=== PATIENT | male | born 1970 | race Caucasian/White ===

== ENCOUNTER 2023-11-16 23:07 | Inpatient (IN) | payer OTHER, SELFPAY ==
[2023-11-16 20:35] VITALS: BP 181/92
[2023-11-16 20:57] LABS: % Basophils 0.3 % (0-2); % Eosinophils 0.9 % (0-6); % Immature Granulocytes 0.1 % (0-0.5); % Lymphocytes 27.7 % (20.5-51.1); % Monocytes 8.6 % (1.7-9.3); % Neutrophils 62.4 % (42.2-75.2); Absolute Eosinophils 0.1 10^3/uL (0-0.7); Absolute Lymphocytes 1.9 10^3/uL (1.2-3.4); Absolute Monocytes 0.6 10^3/uL (0.1-0.6); Absolute Neutrophils 4.2 10^3/uL (1.4-6.5); Hematocrit 40.5 % (39.0-52.0); Hemoglobin 14.5 g/dL (13.0-18.0); Mean Corp Hgb Conc. 35.8 g/dL (33.0-37.0); Mean Corpuscular Hgb 31.6 pg (27.0-31.0); Mean Corpuscular Volume 88.2 fL (80.0-94.0); Mean Platelet Volume 9.9 fL (7.4-10.4); Nucleated Red Blood Cells % 0 % (-); Platelet Count 224 10^3/uL (130-400); Red Blood Cell Count 4.59 10^6/uL (4.70-6.10); Red Cell Dist. Width 12.6 % (11.5-14.5); White Blood Cell Count 6.7 10^3/uL (4.8-10.8)
[2023-11-16 21:11] LABS: ALT (SGPT) 22 U/L (0-50); AST (SGOT) 33 U/L (17-59); Albumin 4.3 g/dl (3.5-5.0); Alkaline Phosphatase 80 U/L (38-126); Blood Urea Nitrogen 22 mg/dl (9-20); Calcium 9.3 mg/dl (8.4-10.2); Carbon Dioxide 24 mmol/L (22-30); Chloride 104 mmol/L (98-107); Glucose 105 mg/dl (70-99); Potassium 4.3 mmol/L (3.5-5.1); Sodium 136 mmol/L (135-145); Total Bilirubin 0.6 mg/dl (0.2-1.3); Total Protein 7.2 g/dl (6.3-8.2); eGFR > 60.00
[2023-11-16 21:21] LABS: Troponin I 0.434 ng/ml
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
[2023-11-16 21:48] VITALS: BP 157/89
[2023-11-16] MEDS: LOW STRENGTH ASPIRIN 324 MG PO (21:48)
[2023-11-16] MEDS: NITROSTAT (SUBLINGUAL) 0.400000000000000022 MG SL (21:49)
[2023-11-16 21:53] VITALS: BMI 32.5
[2023-11-16 22:00] VITALS: BP 139/92
[2023-11-16 22:06] LABS: APTT 28.8 Sec (23.4-35.0)
[2023-11-16] MEDS: HEPARIN 4000 UNITS IV (22:13)
[2023-11-16] MEDS: LOPRESSOR 25 MG PO (22:13)
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
[2023-11-16] MEDS: HEPARIN 25000 UNITS/250 ML IV (22:47)
[2023-11-16 23:02] VITALS: BP 154/86
[2023-11-16 23:30] VITALS: BP 154/86
[2023-11-16 23:41] VITALS: BMI 33.0
[2023-11-16 23:49] VITALS: BP 140/95
[2023-11-17] VITALS (27 sets, daily range): BP systolic 124–174; BP diastolic 70–110
[2023-11-17 00:46] LABS: HDL Cholesterol 40 mg/dl; LDL Cholesterol, Calculated 22 mg/dl; Total Cholesterol 119 mg/dl (50-199); Triglyceride 285 mg/dl (10-149); Very Low Density Lipoprotein 57 mg/dl (0-30)
--- NOTE | 2023-11-17 00:50 | PTCARENOTE ---
Received patient from ED via stretcher into room 4850. Patient ambulated self to bed and denies any dizziness. Tele monitor applied, patient SR. Denies any pain or discomfort. IV heparin gtt currently infusing at 10ml/hr. Oriented patient to room.
Patient aware of POC, call alston within reach.
[2023-11-17 00:53] LABS: Troponin I 0.435 ng/ml
[2023-11-17 05:30] LABS: % Basophils 0.5 % (0-2); % Eosinophils 1.4 % (0-6); % Lymphocytes 36.8 % (20.5-51.1); % Monocytes 8.2 % (1.7-9.3); % Neutrophils 52.1 % (42.2-75.2); Absolute Eosinophils 0.1 10^3/uL (0-0.7); Absolute Immature Granulocytes 0.1 10^3/uL (0-0.05); Absolute Lymphocytes 2.2 10^3/uL (1.2-3.4); Absolute Monocytes 0.5 10^3/uL (0.1-0.6); Hematocrit 41.5 % (39.0-52.0); Hemoglobin 14.6 g/dL (13.0-18.0); Mean Corp Hgb Conc. 35.2 g/dL (33.0-37.0); Mean Corpuscular Hgb 31.3 pg (27.0-31.0); Mean Corpuscular Volume 89.1 fL (80.0-94.0); Nucleated Red Blood Cells % 0 % (-); Platelet Count 180 10^3/uL (130-400); Red Blood Cell Count 4.66 10^6/uL (4.70-6.10); Red Cell Dist. Width 12.7 % (11.5-14.5); White Blood Cell Count 5.8 10^3/uL (4.8-10.8)
[2023-11-17 05:39] LABS: APTT 42.7 Sec (23.4-35.0)
[2023-11-17] MEDS: OCEAN, SALINE MIST 1 SPRAYS NASAL (05:50)
[2023-11-17 06:01] LABS: ALT (SGPT) 21 U/L (0-50); AST (SGOT) 31 U/L (17-59); Albumin 4.1 g/dl (3.5-5.0); Alkaline Phosphatase 69 U/L (38-126); Blood Urea Nitrogen 16 mg/dl (9-20); Calcium 9.2 mg/dl (8.4-10.2); Carbon Dioxide 25 mmol/L (22-30); Chloride 106 mmol/L (98-107); Estimated Creatinine Clearance > 125 ml/min; Glucose 99 mg/dl (70-99); Potassium 4.3 mmol/L (3.5-5.1); Sodium 137 mmol/L (135-145); Total Bilirubin 0.7 mg/dl (0.2-1.3); Total Protein 6.8 g/dl (6.3-8.2); eGFR > 60.00
[2023-11-17 06:14] LABS: Troponin I 0.452 ng/ml
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
[2023-11-17] MEDS: LOW STRENGTH ASPIRIN 81 MG PO (09:04)
[2023-11-17 09:09] LABS: Glycohemoglobin (HgbA1c) 5.7 % (4.0-5.6)
[2023-11-17] MEDS: CLARITIN 10 MG PO (09:12)
[2023-11-17] MEDS: TYLENOL 650 MG PO ×2 (09:23→20:47)
--- NOTE | 2023-11-17 09:24 | PTCARENOTE ---
Patient resting in bed, IV heparin infusing at 1200 units/hr. No chest pain or sob although states when he is oob to the bathroom, he feels fatigued. Urinal is at the bedside if needed. Patient complaining of being hungry and having sinus pressure
and a headache, usually uses flonase which is NF. Patient seen by Wali HAYES and given claritin PO and tylenol. Patient is for cardiac cath this AM
[2023-11-17] MEDS: TOPROL XL 12.5 MG PO (10:48)
--- NOTE | 2023-11-17 11:07 | CM ---
Chart reviewed. Patient is independent of ADLS, lives with his leslye 2 STH, 3 SMITA, 0 DME. Patient is waiting a cardiac cath. Plan is for the patient to return home. CM to follow.
--- NOTE | 2023-11-17 11:54 | PTCARENOTE ---
Patient taken to the cathead operator at 1145.
[2023-11-17 13:03] LABS: Troponin I 0.326 ng/ml
--- NOTE | 2023-11-17 13:03 | PTCARENOTE ---
Patient returned from malthouse laborer after cardia cath via R radial artery. Radial band in place with a strong radial pulse present and pulse ox of 96%. Patient denies any pain or discomfort, appears calmer and is aware of need for further surgical
intervention. Reinforced post cath restrictions. Monitoring VS, daughter at the bedside.
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
--- NOTE | 2023-11-17 17:23 | ITS.CL.CATH ---
Senior Adults Director - Catheterization
Cardiac Catheterization
Procedure Report:
LEFT HEART CATHETERIZATION
Date of Procedure: November 17, 2023
Referring: Angela Reyes MD, [facility], [facility]
PROCEDURES:
1. Left heart catheterization, coronary angiogram.
2. Ultrasound-guided access
INDICATION: Patient is a 52-year-old gentleman with strong family history of premature coronary artery disease without significant cardiovascular risk factors, nondiabetic, non-smoker who presents with exertional chest discomfort starting 5 or 6
days ago with recurrent symptoms over the weekend and rest chest discomfort starting yesterday with mild troponin elevation now being referred for a left heart catheterization to rule out obstructive CAD
ACCESS: Right radial artery, 6 Georgian sheath, under ultrasound-guided
HEMODYNAMICS : (mmHg)
AO (s/d) : 141/80
LV (s/d) : 145/9
LVEDP : 17
CORONARY FINDINGS
DOMINANCE: Right
LEFT MAIN: The left main artery is a large-caliber vessel which gives rise to the left anterior descending artery and the left circumflex artery. There is minimal luminal irregularities.
LEFT ANTERIOR DESCENDING: The left anterior descending artery is a medium caliber vessel which gives rise to 1 major diagonal branch which functions as a dual LAD system paralleling its course to the LAD. There is a 80 to 90% proximal LAD stenosis
just proximal to the takeoff of the major diagonal branch which has a anterior and of poor takeoff. This disease extends into the ostium of the diagonal branch which disease progressing into the proximal portion. There is also a long segment of
tubular up to 80% in the mid LAD.
CIRCUMFLEX: The left circumflex artery is a large-caliber vessel which gives rise to 2 major obtuse marginal branches and a medium caliber left posterolateral branch. There is minimal luminal irregularities.
RIGHT CORONARY ARTERY: The right coronary artery is a large-caliber, dominant vessel gives rise to the right posterior descending artery and the right posterolateral system. The right PDA has a mid 70 to 80% stenosis which is tubular. Otherwise
there is mild diffuse atherosclerotic plaque
SEDATION: 29 minutes of procedural sedation was utilized. An independent medical field representative was present to assist with and help manage the patient's level of consciousness and physiologic status.
RADIATION SUMMARY: Fluoro Time (min): 2.4, Dose (mGy): 493.8, DAP (Gy.cm2) : 39.7
Closure Device: Vascular band over right radial artery, 10 cc of air
CONCLUSIONS
1. Significant coronary artery disease involving proximal and mid LAD along with the major diagonal which functions as a dual LAD.
2. 70 to 80% mid RPDA stenosis.
3. Elevated LVEDP
RECOMMENDATIONS
1. CT surgery consult for referral for coronary bypass grafting with bypasses to LAD, diagonal, +/- RPDA
2. Aggressive cardiovascular risk factors.
Angela Reyes MD, FACC, [facility]
[2023-11-17] MEDS: LIPITOR 40 MG PO (18:45)
[2023-11-17] MEDS: HEPARIN 25000 UNITS/250 ML IV (19:00)
--- NOTE | 2023-11-17 19:39 | W.PN.UPDATE ---
Update Note
Progress Note Update
PATIENT TO GO FOR CABG WITH TOMORROW.
Procedure Type:�Isolated CABG
PERIOPERATIVE OUTCOME ESTIMATE %
Operative Mortality 0.428%
Morbidity & Mortality 3.22%
Stroke 0.525%
Renal Failure 0.319%
Reoperation 1.54%
Prolonged Ventilation 1.49%
Deep Sternal Wound Infection 0.129%
Long Hospital Stay (>14 days) 1.11%
Short Hospital Stay (<6 days)* 75.2%
Clinical Summary
Planned Surgery: Isolated CABG, Urgent, First cardiovascular surgery
Demographics: 52 year old, White, male, 98.5kg, 173cm, BMI: 32.9 kg/m�
Lab Values: Creatinine: 0.7 mg/dL, Hematocrit: 41.5%, WBC Count: 5.8 10�/�L, Platelet Count: 417142 cells/�L
Substance Abuse: Former smoker
Risk Factors / Comorbidities: Hypertension, Family Hx of CAD
Coronary Artery Disease: 3 vessels diseased, Non-ST Elevation PR, PR: 1 to 7 Days
Valve Disease: Trivial/Trace MR, Trivial/Trace TR
[2023-11-17] MEDS: NITROSTAT (SUBLINGUAL) 0.400000000000000022 MG SL ×2 (20:41→20:46)
[2023-11-17] MEDS: NITROGLYCERIN PREMIX 250 IV (21:05)
[2023-11-17] MEDS: NSS (PRESERVATIVE FREE) 0.25 ML IV (21:25)
[2023-11-17] MEDS: ATIVAN 0.5 MG IV (21:25)
[2023-11-17] MEDS: MAALOX 30 ML PO (21:26)
--- NOTE | 2023-11-17 21:30 | W.PN.CT ---
Subjective
-
Date of Service: November 17, 2023
Objective Data
-
Lab Results
11/17/23 05:19
APTT Cancelled 11/17/23 11:50
Vital Signs
Vital Signs
Temp Pulse Resp BP Pulse Ox
98.5 F 80 20 142/91 99
11/17/23 20:45 11/17/23 20:55 11/17/23 20:45 11/17/23 20:55 11/17/23 20:45
CT Intake/Output/Weight
11/17/23 11/17/23 11/18/23
06:59 18:59 06:59
Intake Total 74 / 74 350 / 350
Balance 74 / 74 350 / 350
SaO2: 99
Physical Exam
-
General: Awake and AOx3
Cardiovascular: Regular rate & rhythm
[2023-11-17] MEDS: LOPRESSOR 12.5 MG PO (21:37)
[2023-11-17 22:01] LABS: Blood Urea Nitrogen 11 mg/dl (9-20); Calcium 9.4 mg/dl (8.4-10.2); Carbon Dioxide 20 mmol/L (22-30); Chloride 105 mmol/L (98-107); Estimated Creatinine Clearance > 125 ml/min; Glucose 113 mg/dl (70-99); Potassium 4.2 mmol/L (3.5-5.1); Sodium 134 mmol/L (135-145); eGFR > 60.00
[2023-11-17 22:07] LABS: Troponin I 0.231 ng/ml
[2023-11-18] VITALS (58 sets, daily range): BP systolic 103–157; BP diastolic 61–92
--- NOTE | 2023-11-18 00:50 | PTCARENOTE ---
Patient rang call alston at approx 20:35. Upon assessment patient laying in bed and c/o chest tightness. Reports the discomfort is similar to his original symptoms. BP 174/110. 2L of O2 applied, pt sating 99% 2L NC. This RN administered nitro
sublingual at 20:41 for 7/10 chest discomfort. Post pain assessment remains 7, and second dose of Sublingual nitro administered at 20:46. Post Nitroglycerin administration patient c/o: bilateral arm tingling, nausea, headache, and his ears were
ringing. Patient appears anxious. Hortencia HAYES made aware and at bedside. Orders obtained & labs collected. Ekg shows NSR. Hortencia CANO ordered Nitro gtt, Ativan 0.5mg IV, Lopressor 12.5mg, and Maalox 30ml--see MAR for further
details. Patient w/ good relief. 1st round of prep completed. IV heparin gtt currently infusing at 10 ml/hr. Right radial dressing C/D/I. No hematoma present at this time. Positive radial pulse. Patient aware of activity restrictions. Spouse at
bedside. Patient currently laying in bed, call alston within reach.
[2023-11-18] MEDS: HEPARIN 25000 UNITS/250 ML IV (01:20)
[2023-11-18] MEDS: TYLENOL 650 MG PO (01:21)
[2023-11-18 01:27] LABS: Hematocrit 41.1 % (39.0-52.0); Hemoglobin 14.9 g/dL (13.0-18.0); Mean Corp Hgb Conc. 36.3 g/dL (33.0-37.0); Mean Corpuscular Hgb 31.4 pg (27.0-31.0); Mean Corpuscular Volume 86.5 fL (80.0-94.0); Mean Platelet Volume 10.2 fL (7.4-10.4); Platelet Count 211 10^3/uL (130-400); Red Blood Cell Count 4.75 10^6/uL (4.70-6.10); Red Cell Dist. Width 12.6 % (11.5-14.5); White Blood Cell Count 8.9 10^3/uL (4.8-10.8)
[2023-11-18 01:38] LABS: INR 1.17; PT 14.7 Sec (11.4-14.6)
[2023-11-18 01:44] LABS: ALT (SGPT) 20 U/L (0-50); AST (SGOT) 28 U/L (17-59); Albumin 4.3 g/dl (3.5-5.0); Alkaline Phosphatase 67 U/L (38-126); Blood Urea Nitrogen 11 mg/dl (9-20); Calcium 8.9 mg/dl (8.4-10.2); Carbon Dioxide 23 mmol/L (22-30); Chloride 105 mmol/L (98-107); Direct Bilirubin 0.3 mg/dl (0.0-0.4); Estimated Creatinine Clearance > 125 ml/min; Glucose 115 mg/dl (70-99); Magnesium 1.9 mg/dl (1.6-2.3); Potassium 3.9 mmol/L (3.5-5.1); Sodium 136 mmol/L (135-145); Total Bilirubin 1.1 mg/dl (0.2-1.3); Total Protein 7.3 g/dl (6.3-8.2); eGFR > 60.00
[2023-11-18] MEDS: CALCIUM GLUCONATE 130 MG IV (02:12)
[2023-11-18 05:24] LABS: Glucose - Point of Care 108 mg/dl (70-99)
[2023-11-18] MEDS: ZOFRAN 4 MG IV (05:24)
[2023-11-18] MEDS: OFIRMEV 100 IV ×2 (05:45→15:00)
--- NOTE | 2023-11-18 07:09 | PTCARENOTE ---
Patient had an unmeasurable episode during the night and did not report it to the nurse. After returning from the bathroom the patient c/o nausea, lightheadedness, and severe headache. BP 132/82, HR in the 60-90's. Nitro gtt adjusted d/t patient
remained chest pain free. Nitro currently infusing at 10mcg/min. Blood sugar 108. Hortencia Cannon CVPA made aware and at bedside. EKG obtained. IV Zofran administered, and IV Ofirmev given--see MAR for full details. Will pass along to day shift RN
Cherise.
[2023-11-18] MEDS: REGLAN 10 MG IV (07:10)
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
[2023-11-18] MEDS: PROTONIX IV 40 MG IV (08:03)
[2023-11-18] MEDS: LOPRESSOR 5 MG IV (08:03)
[2023-11-18] MEDS: NSS (PRESERVATIVE FREE) 10 ML IV (08:03)
[2023-11-18] MEDS: BACTROBAN 2% OINTMENT 1 APPLIC NASAL ×2 (08:08→19:57)
[2023-11-18] MEDS: TOPROL XL PO (08:09)
--- NOTE | 2023-11-18 08:31 | W.PN.UPDATE ---
Update Note
Progress Note Update
Pt seen and examined
Cath reviewed
Very pleasant 52 y/o admitted with nstemi
Cath with lad/diag disease (relatively small distal lad) as well as distal pda lesion
I agree with plans for cabg
Long discussion with the patient and his family regarding the findings, recommendations and plans
Risks, complications, benefits and alternatives all reviewed.
Cabg today
--- NOTE | 2023-11-18 08:50 | PTCARENOTE ---
Pt sent to CVOR with temp pacer.
[2023-11-18 09:37] LABS: ACT+ - POC 109 Seconds (82-134)
[2023-11-18 09:48] LABS: B.E. - POC -3.5 mmol/L; Glucose - POC 119 mg/dl (65-99); HCO3 - POC 22 mmol/L (21-29); Hematocrit - POC 39 % PCV (42-52); Hemodilution- POC No; Hemoglobin Calculated - POC 13.1; Ionized Calcium - POC 1.17 mmol/L (1.12-1.27); O2 Saturation %Calculated-POC 99.9 5 (92-96); PCO2 - POC 39 mmHg (35-45); PO2 - POC 263 mmHg (80-100); Potassium - POC 3.5 mmol/L (3.6-5.0); Sodium - POC 139 mmol/L (135-145); pH - POC 7.36 (7.35-7.45)
[2023-11-18 09:58] LABS: Vitamin D, 25-OH*** 22.1 ng/mL (30-80)
[2023-11-18 10:08] LABS: Urine Albumin Trace (Neg - Trace); Urine Bilirubin 1+ (Negative); Urine Character Clear (Clear); Urine Glucose Negative (Negative); Urine Ketone 3+ (Negative); Urine Leukocyte Trace (Negative); Urine Nitrite Negative (Negative); Urine Occult Blood 1+ (Negative); Urine Specific Gravity 1.025 (<1.030); Urine Urobilinogen 2+ (Neg - 1+)
[2023-11-18 10:09] LABS: Urine Color Yellow
--- NOTE | 2023-11-18 10:42 | CM ---
Patient in OR today for CT Surgery.
Prior to admission, patient resides w/ spouse in a private, 2 story home w/ 3 SMITA. Functionally, patient is indep. at baseline w/ ADLs, mobility without the use of any assisted device.
Antic. DC to home w/ CT Transitional Care RN.
CM to follow.
[2023-11-18 11:05] LABS: ACT+ - POC 585 Seconds (82-134)
[2023-11-18 11:29] LABS: ACT+ - POC 571 Seconds (82-134)
[2023-11-18 11:30] LABS: B.E. - POC -0.8 mmol/L; Glucose - POC 137 mg/dl (65-99); HCO3 - POC 23 mmol/L (21-29); Hematocrit - POC 35 % PCV (42-52); Hemodilution- POC Yes; Hemoglobin Calculated - POC 11.8; Ionized Calcium - POC 1.04 mmol/L (1.12-1.27); O2 Saturation %Calculated-POC 99.4 5 (92-96); PCO2 - POC 36 mmHg (35-45); PO2 - POC 157 mmHg (80-100); POC Comment CPB; Potassium - POC 4.3 mmol/L (3.6-5.0); Sodium - POC 137 mmol/L (135-145); pH - POC 7.42 (7.35-7.45)
[2023-11-18 11:45] LABS: ACT+ - POC 109 Seconds (82-134)
[2023-11-18 11:46] LABS: B.E. - POC -2.5 mmol/L; Glucose - POC 153 mg/dl (65-99); HCO3 - POC 22 mmol/L (21-29); Hematocrit - POC 35 % PCV (42-52); Hemodilution- POC Yes; Hemoglobin Calculated - POC 11.8; O2 Saturation %Calculated-POC 97.3 5 (92-96); PCO2 - POC 37 mmHg (35-45); PO2 - POC 95 mmHg (80-100); POC Comment POST; Potassium - POC 3.9 mmol/L (3.6-5.0); Sodium - POC 138 mmol/L (135-145); pH - POC 7.39 (7.35-7.45)
--- NOTE | 2023-11-18 12:10 | W.CVOR.SURPR ---
CVOR Surgeon Immed Pre Op
-
I have examined this patient prior to performance of the scheduled procedure.
The patient's condition is unchanged from the time of the dictated/written History and
Physical and the patient is able to undergo the scheduled procedure.
--- NOTE | 2023-11-18 12:11 | W.PN.CT.SURG ---
CT Surgery Operative Note
-
Pre-op Diagnosis: NSTEMI
cad
Post-op Diagnosis: Same
Procedure: Cabg x 2
carias- diag/lad
on pump
RSF
Primary Surgeon: Highbloom
Assisting Surgeons: Pack
Specimen: None
Cultures: None
Complications / Blood Loss: None
Findings: King preserved pre and postop, no new wma
good conduit
good targets
Pda distal to disease probably adequate, however vein appeared not suitable as a match
[2023-11-18 12:14] LABS: Urine Mucus Moderate
[2023-11-18 12:15] LABS: Urine Bacteria Few (Negative)
--- NOTE | 2023-11-18 12:28 | W.PN.UPDATE ---
Update Note
Progress Note Update
52 year old male admitted 11/15 with NSTEMI and multivessel disease. Taken to OR 11/[address] Haji
IV fluids: 2000
U.O.:� 200
Blood:� none
Wires:� V-wires
Inotropes:� none
Pressors:� Levoophed @ 3
Sedatives: Precedex� @ 0.6
�
NEURO: sedated on Precedex, pupils +2mm B/L
RESP: #8OT @24cm> 550/60%/14/5. Lungs clear B/L. 2 mediastinal (XXcc on arrival) chest tubes to -20cm suction. Sanguineous drainage
CV: RRR +S1, S2, no S3, no�rub, no murmur. Dermabond to median sternotomy. RIJ slick intact. V-wires to TPM-VVI @ 50
ABD: round, soft, no BS
EXT: no edema, +2/4 DP pulses B/L, no femoral bruit, LLE VICKIE wrap intact; right radial A-line intact
: Orozco with clear yellow urine
�
A/P: POD #0 s/p CABG x 2 MCBRIDE-LAD & diag
JORGE: EF�60-65%
- wean and extubate
- wean Levophed to off as BP allows
# CAD/NSTEMI
- will require ASA/Plavix (x 1 year), statin, beta-zoe
# acute surgical blood loss anemia-expected
- trend CBC
�
�
[2023-11-18] MEDS: ANCEF 10 IV ×2 (12:30)
--- NOTE | 2023-11-18 12:30 | PTCARENOTE ---
Patient received from cvor status post cabg x 2 carias on pump utilizing carias and right svg. Usual lines. Right radial art line positional to nonfuntional dampened waveforms: right NIBP cuff utilized: ct surger aware and ct PA aware. NSR. Right IJ
cordis with slik port for CVP readings. Levo 3mcg then to off by 1pm. Temp epicardial v wire in place: backup rate of 40bpm with an ma of 10 with a sensitivity of 1. Sensing appropriately. Chest tubes x 2 meds to wall suction -20 and 1 pleur
evac. See flowrecord for remaining assessments.
[2023-11-18 12:37] LABS: Glucose - Point of Care 154 mg/dl (70-99)
[2023-11-18 12:40] LABS: Hematocrit 37.4 % (39.0-52.0); Hemoglobin 13.2 g/dL (13.0-18.0); Platelet Count 180 10^3/uL (130-400)
[2023-11-18 12:41] LABS: B.E. -2.2 mmol/L; HCO3 23.2 mmol/L (21-28); Ionized Calcium 1.17 mMOL/L (1.15-1.33); PCO2 41 mmHg (35-48); PO2 101 mmHg (83-108); Potassium 4.3 mMOL/L (3.5-5.1); Sodium 133 mMOL/L (136-145); pH 7.36 (7.35-7.45)
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
[2023-11-18 12:51] LABS: APTT 26.4 Sec (23.4-35.0); INR 1.25; PT 15.7 Sec (11.4-14.6)
[2023-11-18 12:56] LABS: Blood Urea Nitrogen 12 mg/dl (9-20); Estimated Creatinine Clearance > 125 ml/min; Glucose 145 mg/dl (70-99)
[2023-11-18] MEDS: CALCIUM CHLORIDE 10% SYRINGE 50 ML IV (13:23)
[2023-11-18] MEDS: CALCIUM CHLORIDE 10% SYRINGE 50 MG IV (13:23)
[2023-11-18] MEDS: TORADOL 15 MG IV ×2 (13:31→19:58)
[2023-11-18] MEDS: CLARITIN PO (13:35)
[2023-11-18] MEDS: NSS 500 IV (13:39)
[2023-11-18 13:50] LABS: Glucose - Point of Care 138 mg/dl (70-99)
[2023-11-18] MEDS: TYLENOL PO (14:03)
[2023-11-18 14:23] LABS: B.E. -5.5 mmol/L; Ionized Calcium 1.19 mMOL/L (1.15-1.33); O2 Saturation % 98.3 % (94-98); PCO2 25 mmHg (35-48); PO2 97 mmHg (83-108); Potassium 3.6 mMOL/L (3.5-5.1); pH 7.44 (7.35-7.45)
--- NOTE | 2023-11-18 14:30 | PTCARENOTE ---
ABG result on cpap to Noni SUPERVISOR BROADLOOM: ok to extubate to 4l nasal canula
[2023-11-18] MEDS: KCL 50 IV ×2 (14:36→15:39)
--- NOTE | 2023-11-18 14:36 | RESPNOTE ---
patient extubated at this time without incident. 97% on 4L.
[2023-11-18 14:53] LABS: Glucose - Point of Care 140 mg/dl (70-99)
[2023-11-18] MEDS: LOW STRENGTH ASPIRIN PO (15:57)
[2023-11-18 16:10] LABS: Glucose - Point of Care 136 mg/dl (70-99)
--- NOTE | 2023-11-18 16:30 | PTCARENOTE ---
OK to dc right radial problematic a line.
[2023-11-18] MEDS: FLEXERIL 5 MG PO (16:31)
[2023-11-18] MEDS: PACERONE 200 MG PO ×2 (16:31→22:12)
[2023-11-18] MEDS: LOW STRENGTH ASPIRIN 81 MG PO (16:32)
[2023-11-18] MEDS: NEURONTIN 100 MG PO ×2 (16:32→22:13)
[2023-11-18 17:08] LABS: Glucose - Point of Care 87 mg/dl (70-99)
[2023-11-18 17:17] LABS: Hematocrit 37.3 % (39.0-52.0); Hemoglobin 13.1 g/dL (13.0-18.0); Platelet Count 187 10^3/uL (130-400)
[2023-11-18] MEDS: ROXICODONE 5 MG PO (17:41)
[2023-11-18] MEDS: LIPITOR 40 MG PO (17:41)
[2023-11-18] MEDS: ANCEF 5 IV (18:46)
--- NOTE | 2023-11-18 19:28 | PTCARENOTE ---
Systolic BP's 140's to 150's: Noni BANEGAS aware. New orders received.
[2023-11-18 19:46] LABS: Glucose - Point of Care 113 mg/dl (70-99)
[2023-11-18] MEDS: SENOKOT-S 1 TABLET PO (19:57)
[2023-11-18] MEDS: LOPRESSOR 25 MG PO (19:57)
[2023-11-18] MEDS: MYLICON 160 MG PO (20:23)
--- NOTE | 2023-11-18 20:30 | PTCARENOTE ---
Patient received resting in bed. Patient's at bedside. Patient A+A+Ox3. No neurological deficits noted. No c/o headache, dizziness or lightheadedness. O2 at 3L via NC. SaO2 98%. No s/s of respiratory distress. No c/o SOB. Two chest
tubes - Mediastinal x2 - Intact and patent - 20ml red drainage - No air leak, tidaling or crepitus noted. Sinus Rhythm. Heart rate 80's. Epicardial Temporary Pacemaker - VVI Rate 50, Output 10, Sensitivity 2.0. No c/o chest pain, pressure or
discomfort. Hypoactive to normoactive bowel sounds. No BM. No c/o nausea. No vomiting. Mylicon 160 mg PO ordered by PA - Patient with c/o gas discomfort. Orozco catheter - Temperature sensing - Yellow to light abbe urine - Outputs as
documented. Positive, palpable pulses. Right I.J. Cordis with Sloan catheter. CVP 6. Sternal incision with surgical adhesive - Intact and open to air. Right groin puncture site. Right knee incision intact - Coban Jaison Wrap. Assessment as
documented.
[2023-11-18 22:04] LABS: Glucose - Point of Care 103 mg/dl (70-99)
[2023-11-18] MEDS: TYLENOL 1000 MG PO (22:13)
[2023-11-19] VITALS (20 sets, daily range): BP systolic 117–158; BP diastolic 73–94; PULSE 88; O2SAT 100; BMI 32.0
--- NOTE | 2023-11-19 | PTCARENOTE ---
Patient sleeping without difficulty. No further changes from previous assessment.
[2023-11-19 00:20] LABS: Glucose - Point of Care 106 mg/dl (70-99)
[2023-11-19] MEDS: CARDENE 200 IV (01:00)
[2023-11-19 02:00] LABS: Glucose - Point of Care 105 mg/dl (70-99)
[2023-11-19] MEDS: TORADOL 15 MG IV (02:02)
[2023-11-19] MEDS: ANCEF 5 IV ×2 (03:39→11:03)
[2023-11-19] MEDS: ROXICODONE 5 MG PO ×4 (04:00→22:03)
[2023-11-19 04:11] LABS: Glucose - Point of Care 99 mg/dl (70-99)
[2023-11-19 04:22] LABS: Hematocrit 40.1 % (39.0-52.0); Hemoglobin 14.3 g/dL (13.0-18.0); Mean Corp Hgb Conc. 35.7 g/dL (33.0-37.0); Mean Corpuscular Hgb 31.4 pg (27.0-31.0); Mean Corpuscular Volume 88.1 fL (80.0-94.0); Platelet Count 186 10^3/uL (130-400); Red Blood Cell Count 4.55 10^6/uL (4.70-6.10); Red Cell Dist. Width 12.9 % (11.5-14.5); White Blood Cell Count 15.9 10^3/uL (4.8-10.8)
[2023-11-19 04:39] LABS: Blood Urea Nitrogen 13 mg/dl (9-20); Calcium 9.2 mg/dl (8.4-10.2); Carbon Dioxide 22 mmol/L (22-30); Chloride 102 mmol/L (98-107); Estimated Creatinine Clearance > 125 ml/min; Glucose 100 mg/dl (70-99); Magnesium 1.8 mg/dl (1.6-2.3); Potassium 4.1 mmol/L (3.5-5.1); Sodium 136 mmol/L (135-145); eGFR > 60.00
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
[2023-11-19] MEDS: TYLENOL PO (05:45)
[2023-11-19 05:52] LABS: Glucose - Point of Care 117 mg/dl (70-99)
--- NOTE | 2023-11-19 06:15 | PTCARENOTE ---
Patient A+A+Ox3. No neurological deficits noted. Patient restarted on Cardene gtt then off this AM to maintain SBP 90-130. Patient's [place] catheter removed without difficulty. Orozco catheter removed without difficulty - Due to void at 12pm.
Patient given CHG bath and linens changed. Chest tube dressing changed. Patient OOB to chair. Standing scale weight 95.3 kg. Patient continues on Insulin gtt - Glycemic Protocol. Right I.J. Cordis intact - Saline flush 10 ml/hr.
Assessment/Interventions as documented.
--- NOTE | 2023-11-19 07:30 | PTCARENOTE ---
Assumed care of patient from shift nurse manager RN. AAO x 3 sitting up in the chair.. Pt c/o feeling 'Woozie' requesting to get back to bed. Feet elevated. VSS. SR on monitor. 2 L 99% . IS to 1000. Epicardial wire to back up of VVI 50, No pacing
noted at present.. Chest tubes x 2 to - 20 cm suction. No crepitus or air leak noted. Abdomen soft and non tender. Denies urge to void as of yet. will monitor. Insulin infusing per glycemic protocol. Pulses palpable. No edema appreciated.
Plan for day discussed.
[2023-11-19 08:04] LABS: Glucose - Point of Care 106 mg/dl (70-99)
[2023-11-19] MEDS: NEURONTIN 100 MG PO ×3 (08:04→22:02)
[2023-11-19] MEDS: LOPRESSOR 25 MG PO ×4 (08:04→21:11)
[2023-11-19] MEDS: PROTONIX 40 MG PO (08:04)
[2023-11-19] MEDS: LOW STRENGTH ASPIRIN 81 MG PO (08:04)
[2023-11-19] MEDS: PLAVIX 75 MG PO (08:04)
[2023-11-19] MEDS: CLARITIN 10 MG PO (08:05)
[2023-11-19] MEDS: BACTROBAN 2% OINTMENT 1 APPLIC NASAL ×2 (08:05→20:03)
[2023-11-19] MEDS: LIDOCAINE 4% PATCH 1 PATCH TOPICAL (08:05)
[2023-11-19] MEDS: PACERONE 200 MG PO ×3 (08:05→22:02)
[2023-11-19] MEDS: MAGNESIUM OXIDE 500 MG PO ×2 (08:05→20:04)
[2023-11-19] MEDS: SENOKOT-S 1 TABLET PO ×2 (08:05→20:04)
[2023-11-19] MEDS: FLEXERIL 5 MG PO ×2 (08:05→17:11)
--- NOTE | 2023-11-19 08:10 | W.PN.ANS.POP ---
Anesthesia Post Operative
- Anesthesia Post Op Note
Vital Signs Stable-See Nursing Note: Yes
Airway Patent: Yes
Adequate Pain Control: Yes
Change in Mental Status: No
Current Postoperative Nausea & Vomiting: No
Anesthesia Complications: No
General Anesthetic Recall: No
Unplanned Admission: No
Post Op Hydration Adequate: Yes
- -
Spoke to RN, pt stable, awake and alert. OOB to chair, no anesthesia c/o, no N/V.
--- NOTE | 2023-11-19 08:18 | W.PN.UPDATE ---
Update Note
Progress Note Update
looks good
vss
sr
no O2
ct min
uo good
labs good
POD#1 s/p cabg
D/c brown
D/c right sided ct
Bulb Left ct
wean O2 to sat >90
Plavix
isolate pacer
No lasix
Ambulate today
No sternal precautions
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
[2023-11-19 08:57] LABS: Hepatitis B Surface Antigen Negative (Negative)
[2023-11-19 09:15] LABS: Hepatitis B Core Ab, Total Negative (Negative); Hepatitis B Surface Antibody Negative; Hepatitis C Antibody Negative (Negative)
[2023-11-19 10:27] LABS: Glucose - Point of Care 110 mg/dl (70-99)
--- NOTE | 2023-11-19 10:37 | PTCARENOTE ---
One mediastinal chest tube removed at this time, the other mediastinal chest tube placed to bulb suction per MD order. Epicardial wire insulated at this time. Pt tolerated w/o issue. Pain well managed with Flexeril at this time. Resting in bed.
[2023-11-19 10:42] LABS: Hepatitis A Antibody, Total Negative (Negative)
[2023-11-19] MEDS: NSS IV (12:48)
--- NOTE | 2023-11-19 13:00 | PTCARENOTE ---
Resting during routine assessment, chest tube bulb emptied and reconstituted. Has not voided as of yet, denies urge, will bladder scan and follow. vss, assessment otherwise unchanged from prior.
[2023-11-19] MEDS: TYLENOL 1000 MG PO ×2 (13:20→22:03)
--- NOTE | 2023-11-19 14:19 | PTCARENOTE ---
Heart rate increased on monitor, Pt sleeping in bed during assessment . Tachycardic on monitor. Discussed with CT FOOD AND BEVERAGE ORDER CLERK. Additional metoprolol administered. Resting , denies s/s
--- NOTE | 2023-11-19 14:54 | CM ---
CM following for DC planning needs.
Pt. is POD#1 from CABG.
Reviewed DC plan. Anticipate HOME w/ CT Transitional Care RN once medically stable.
CM to follow.
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
[2023-11-19] MEDS: LIPITOR 40 MG PO (17:10)
--- NOTE | 2023-11-19 17:37 | PTCARENOTE ---
Resting in bed. VSS, pain well managed with roxycodone/flexeril. Voiding w/o issue. Assessment otherwise unchanged from prior.
[2023-11-19] MEDS: DILAUDID 0.25 MG IV (20:05)
--- NOTE | 2023-11-19 20:30 | PTCARENOTE ---
Patient received resting in bed watching television. Patient's at bedside. Patient A+A+Ox3. No neurological deficits noted. No c/o headache, dizziness or lightheadedness. Room air. SaO2 95%. Mediastinal chest tube to bulb - Empty and
compress per protocol - 30 ml red drainage. Chest tube dressing intact. Sinus Tachycardia with occasional PVC. Heart rate 100's. V-Wire insulated. No c/o chest pain, pressure or discomfort. Normoactive bowel sounds. No BM. No c/o nausea. No
vomiting. Voiding without difficulty. Positive, palpable pulses. Sternal incision intact - Surgical adhesive - Open to air. Right lower leg with two small incisions - Surgical adhesive - Open to air. Right I.J. Cordis. Pain management with IV
Dilaudid and Roxicodone PO. Assessment as documented.
[2023-11-19] MEDS: CORDARONE 103 MG IV (21:10)
--- NOTE | 2023-11-19 21:30 | PTCARENOTE ---
Patient resting in bed. Patient's ekg monitor displayed burst of Sinus Tachycardia and PVC - Heart rate 130's. Self-limiting. Patient with no c/o chest pain, pressure or discomfort. Extra dose of Lopressor 25 mg PO and Amiodarone bolus
ordered by PA and administered without difficulty. Assessment as documented.
[2023-11-19] MEDS: DILAUDID 0.5 MG IV (22:15)
[2023-11-20] VITALS (8 sets, daily range): BP systolic 122–155; BP diastolic 76–105; PULSE 85; O2SAT 95–96; BMI 31.8
--- NOTE | 2023-11-20 | PTCARENOTE ---
Patient sleeping without difficulty. Assessment as documented.
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
[2023-11-20] MEDS: DILAUDID 0.5 MG IV (03:15)
[2023-11-20] MEDS: NSS 500 IV (03:39)
[2023-11-20 03:51] LABS: Hemoglobin 13.8 g/dL (13.0-18.0); Mean Corp Hgb Conc. 35.4 g/dL (33.0-37.0); Mean Corpuscular Hgb 31.7 pg (27.0-31.0); Mean Corpuscular Volume 89.7 fL (80.0-94.0); Mean Platelet Volume 10.2 fL (7.4-10.4); Platelet Count 183 10^3/uL (130-400); Red Blood Cell Count 4.35 10^6/uL (4.70-6.10); White Blood Cell Count 11.5 10^3/uL (4.8-10.8)
--- NOTE | 2023-11-20 04:00 | PTCARENOTE ---
Patient A+A+Ox3. No neurological deficits noted. Patient ambulated to bathroom by self. Voided. Back to bed. IV Dilaudid for pain management. AM lab work collected and sent. Assessment/Interventions as documented.
[2023-11-20 04:13] LABS: Blood Urea Nitrogen 17 mg/dl (9-20); Calcium 8.5 mg/dl (8.4-10.2); Carbon Dioxide 28 mmol/L (22-30); Chloride 102 mmol/L (98-107); Estimated Creatinine Clearance > 125 ml/min; Glucose 108 mg/dl (70-99); Potassium 4.2 mmol/L (3.5-5.1); Sodium 136 mmol/L (135-145); eGFR > 60.00
[2023-11-20] MEDS: TYLENOL PO (05:20)
[2023-11-20] MEDS: ROXICODONE 5 MG PO ×2 (06:45→14:07)
[2023-11-20] MEDS: TYLENOL 1000 MG PO ×3 (07:34→21:21)
[2023-11-20] MEDS: LOW STRENGTH ASPIRIN 81 MG PO (07:35)
[2023-11-20] MEDS: PLAVIX 75 MG PO (07:35)
[2023-11-20] MEDS: LOPRESSOR 50 MG PO ×2 (07:35→19:49)
[2023-11-20] MEDS: FLEXERIL 5 MG PO ×2 (07:37→15:34)
--- NOTE | 2023-11-20 07:44 | PTCARENOTE ---
Assumed care of patient from director of photography RN. AAO x 3 sitting up in the chair. C/o generalized pain. ST w/ PVC's on monitor. Epicardial wire insulated. RA 95%, using IS independently to 1500. Occasional non productive cough noted. Chest tube x
1 to bulb suction, emptied and reconstituted. Appetite fair. Denies nausea. Passing flatus. Voiding independently in the bathroom. DP pulses palpable. No edema appreciated. Surgical sites c,d,i.. Plan for day discussed.
[2023-11-20] MEDS: CLARITIN 10 MG PO (09:09)
[2023-11-20] MEDS: PACERONE 400 MG PO ×3 (09:09→21:21)
[2023-11-20] MEDS: LIDOCAINE 4% PATCH TOPICAL (09:09)
[2023-11-20] MEDS: NEURONTIN 100 MG PO ×3 (09:09→21:20)
[2023-11-20] MEDS: SENOKOT-S 1 TABLET PO ×2 (09:09→19:49)
[2023-11-20] MEDS: MAGNESIUM OXIDE 500 MG PO ×2 (09:09→19:49)
[2023-11-20] MEDS: PROTONIX 40 MG PO (09:09)
[2023-11-20] MEDS: BACTROBAN 2% OINTMENT 1 APPLIC NASAL ×2 (09:10→19:49)
--- NOTE | 2023-11-20 12:34 | PTCARENOTE ---
Ambulating in room at chelle, gait steady, no MORE noted. Pain minimal at present. VSS Assessment unchanged from prior.
--- NOTE | 2023-11-20 16:28 | PTCARENOTE ---
Ambulating at chelle in room. Requesting muscle relaxer at this time. CT bulb emptied and reconstituted. VSS. Assessment otherwise unchanged from prior.
[2023-11-20] MEDS: LIPITOR 40 MG PO (17:48)
--- NOTE | 2023-11-20 20:01 | PTCARENOTE ---
Assumed pt care. Walking rounds completed with previous RN. Pt AAO x 4, reports intermittent CP with inspiration - alleviated with current pain regiment. Pt on RA - POS 96%, IS performed > 1000 mL, productive cough, posterior BS clear, coarse in L
base. CT x 1 present & connected to bulb - no suction/crepitus. NSR/ST with PVC's/PAC on monitor, heart tones normal, epicardial v-wires insulated. distal pulses palpable, no edema noted. Pt up ad chelle, tolerating activity. BS audible, passing
flatus, adequate appetite. Pt voiding without issue, denies dysuria. Sternal incision CDI - THIOKOL OPERATOR, R knee & ankle incision CDI - THIOKOL OPERATOR. RIJ Cordis maintained with KVO. PIV x 1 present & patent. See AUG.
[2023-11-20] MEDS: TORADOL 15 MG IV (21:24)
[2023-11-21] MEDS: FLEXERIL 5 MG PO ×2 (00:02→20:09)
[2023-11-21] MEDS: XANAX 0.5 MG PO ×2 (00:14→22:07)
--- NOTE | 2023-11-21 00:16 | PTCARENOTE ---
Entered pt room to assess VS. Pt OOB in chair stating difficulty sleeping. Pt hypertensive & diaphoretic, anxious, and reporting having back spasms. Pt previously given 15 mg IV Toradol which he stated alleviated sternal discomfort. 5 mg PO Flexeril
administered as ordered. Pt offered warm compress for back - refused. PA made aware. Xanax ordered & administered as ordered. No other changes.
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
[2023-11-21 05:11] VITALS: BP 127/83
--- NOTE | 2023-11-21 05:15 | PTCARENOTE ---
Pt sleeping throughout night. VS obtained. Labs drawn & sent. No other changes.
[2023-11-21 05:22] LABS: Hematocrit 36.9 % (39.0-52.0); Hemoglobin 13.1 g/dL (13.0-18.0); Mean Corp Hgb Conc. 35.5 g/dL (33.0-37.0); Mean Corpuscular Hgb 31.7 pg (27.0-31.0); Mean Corpuscular Volume 89.3 fL (80.0-94.0); Mean Platelet Volume 10.4 fL (7.4-10.4); Platelet Count 181 10^3/uL (130-400); Red Blood Cell Count 4.13 10^6/uL (4.70-6.10); Red Cell Dist. Width 12.8 % (11.5-14.5); White Blood Cell Count 8.3 10^3/uL (4.8-10.8)
[2023-11-21 05:40] LABS: Blood Urea Nitrogen 20 mg/dl (9-20); Calcium 8.4 mg/dl (8.4-10.2); Carbon Dioxide 28 mmol/L (22-30); Chloride 104 mmol/L (98-107); Estimated Creatinine Clearance > 125 ml/min; Glucose 101 mg/dl (70-99); Magnesium 2.1 mg/dl (1.6-2.3); Potassium 3.7 mmol/L (3.5-5.1); Sodium 138 mmol/L (135-145); eGFR > 60.00
[2023-11-21] MEDS: KCL 40 MEQ PO (06:19)
[2023-11-21 06:48] VITALS: BMI 31.7
[2023-11-21] MEDS: ROXICODONE 5 MG PO ×2 (07:28→22:07)
[2023-11-21 07:31] VITALS: BP 148/73
--- NOTE | 2023-11-21 08:33 | PTCARENOTE ---
assumed care of pt from previous shift RN, sinus rhythm on tele, VSS, +peripheral pulses, no edema noted. Epicardial V wire insulated. Lungs diminished, pox 96% on RA. +bs, tolerating PO intake. Voids spontaneously, adequate. Right IJ cordis and PIV
flush easily. Pt medicated for pain. Mediastinal CT removed as ordered. Plan of care reviewed w the pt and questions encouraged.
[2023-11-21] MEDS: LOW STRENGTH ASPIRIN 81 MG PO (08:59)
[2023-11-21] MEDS: CLARITIN 10 MG PO (08:59)
[2023-11-21] MEDS: NEURONTIN 100 MG PO ×3 (08:59→22:07)
[2023-11-21] MEDS: PACERONE 400 MG PO ×3 (08:59→22:07)
[2023-11-21] MEDS: MAGNESIUM OXIDE 500 MG PO ×2 (08:59→20:05)
[2023-11-21] MEDS: PLAVIX 75 MG PO (08:59)
[2023-11-21] MEDS: LOPRESSOR 75 MG PO ×2 (08:59→20:05)
[2023-11-21] MEDS: SENOKOT-S 1 TABLET PO ×2 (08:59→20:06)
[2023-11-21] MEDS: PROTONIX 40 MG PO (08:59)
[2023-11-21] MEDS: LIDOCAINE 4% PATCH TOPICAL (09:05)
[2023-11-21] MEDS: BACTROBAN 2% OINTMENT 1 APPLIC NASAL ×2 (09:05→20:06)
[2023-11-21] MEDS: NSS IV (09:55)
--- NOTE | 2023-11-21 12:00 | PTCARENOTE ---
sinus rhythm maintained on tele, VSS. Ambulating without difficulty. Pain much better after CT removed.
[2023-11-21 12:41] VITALS: BP 131/89
[2023-11-21 15:37] VITALS: BP 139/82
[2023-11-21] MEDS: TYLENOL PO (15:43)
--- NOTE | 2023-11-21 15:47 | PTCARENOTE ---
cordis removed without incident.
[2023-11-21] MEDS: TYLENOL 1000 MG PO ×2 (16:06→22:07)
[2023-11-21] MEDS: LIPITOR 40 MG PO (18:23)
--- NOTE | 2023-11-21 20:00 | PTCARENOTE ---
report received from previous RN @ 1900, assumed care of pt. pt in bed, AAOx4. pt c/o sternal incision pain. PRN Flexeril given. VSS. NSR on monitor, HR 80's-90's. POX 98% on room air. PIV intact and patent. all surgical sites stable. pt independent
in room/hallways. see worklist for full assessment, VS, and interventions. pt resting comfortably.
[2023-11-21 20:06] VITALS: BP 143/88
[2023-11-21 22:29] VITALS: BP 139/98
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
[2023-11-22] MEDS: TYLENOL 1000 MG PO (05:22)
[2023-11-22 05:24] VITALS: BP 154/90
[2023-11-22] MEDS: FLEXERIL 5 MG PO (05:25)
[2023-11-22 05:36] VITALS: BMI 31.7
[2023-11-22 05:51] LABS: Hemoglobin 13.4 g/dL (13.0-18.0); Mean Corp Hgb Conc. 35.3 g/dL (33.0-37.0); Mean Corpuscular Hgb 31.7 pg (27.0-31.0); Mean Corpuscular Volume 89.8 fL (80.0-94.0); Mean Platelet Volume 10.3 fL (7.4-10.4); Platelet Count 219 10^3/uL (130-400); Red Blood Cell Count 4.23 10^6/uL (4.70-6.10); Red Cell Dist. Width 12.8 % (11.5-14.5); White Blood Cell Count 7.9 10^3/uL (4.8-10.8)
[2023-11-22 06:15] LABS: Blood Urea Nitrogen 16 mg/dl (9-20); Calcium 8.9 mg/dl (8.4-10.2); Carbon Dioxide 27 mmol/L (22-30); Chloride 103 mmol/L (98-107); Estimated Creatinine Clearance > 125 ml/min; Glucose 99 mg/dl (70-99); Magnesium 2.1 mg/dl (1.6-2.3); Potassium 4.8 mmol/L (3.5-5.1); Sodium 138 mmol/L (135-145); eGFR > 60.00
--- NOTE | 2023-11-22 06:30 | PTCARENOTE ---
pt VSS overnight, no changes in assessment. NSR. RA. AM labs drawn and sent. pt resting between care.
[2023-11-22 07:36] VITALS: BP 140/88
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
[2023-11-22] MEDS: PLAVIX 75 MG PO (09:08)
[2023-11-22] MEDS: PROTONIX 40 MG PO (09:08)
[2023-11-22] MEDS: LOPRESSOR 75 MG PO (09:08)
[2023-11-22] MEDS: LOW STRENGTH ASPIRIN 81 MG PO (09:08)
[2023-11-22] MEDS: PACERONE 400 MG PO (09:08)
[2023-11-22] MEDS: SENOKOT-S 1 TABLET PO (09:08)
[2023-11-22] MEDS: NEURONTIN 100 MG PO (09:08)
[2023-11-22] MEDS: MAGNESIUM OXIDE 500 MG PO (09:08)
[2023-11-22] MEDS: CLARITIN 10 MG PO (09:08)
[2023-11-22] MEDS: LIDOCAINE 4% PATCH TOPICAL (09:09)
[2023-11-22] MEDS: NSS IV (09:09)
[2023-11-22] MEDS: BACTROBAN 2% OINTMENT 1 APPLIC NASAL (09:16)
--- NOTE | 2023-11-22 09:18 | PTCARENOTE ---
assumed care of pt from previous shift RN, sinus rhythm on tele w HR 80, VSS, +peripheral pulses, trace edema to bilateral lower extremities. Epicardial V wire insulated. Lungs diminished, pox 96% on RA. +bs, voids independently. PIV flushes easily.
surgical sites intact. Plan of care reviewed w the pt and questions encouraged.
--- NOTE | 2023-11-22 09:31 | PTCARENOTE ---
pt sent for 2 view cxr.
--- NOTE | 2023-11-22 09:51 | PTCARENOTE ---
pacing wire cut as ordered
[2023-11-22 09:55] VITALS: BP 151/97
[2023-11-22 10:03] VITALS: BP 145/82
[2023-11-22 10:06] VITALS: BP 145/82; BP 151/97; PULSE 78; O2SAT 97; O2SAT 99
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
--- NOTE | 2023-11-22 11:33 | PTCARENOTE ---
IV line removed. discharge instructions, follow up appointments and medication list reviewed w the pt and his , questions encouraged.
== END 2023-11-22 11:43 | disposition home or self-care (01) | DRG 234 ==
LOC: CVICU 23:07
PROVIDERS: Anesthesiology; Clinical Nurse Specialist Acute Care; Hospitalist; Physician Assistant Medical; Student in an Organized Health Care Education/Training Program; ADMITTING PHYSICIAN Hospitalist; ATTENDING PHYSICIAN Thoracic Surgery (Cardiothoracic Vascular Surgery); CONSULT PHYSICIAN Internal Medicine Critical Care Medicine; CONSULT PHYSICIAN Thoracic Surgery (Cardiothoracic Vascular Surgery); EMERGENCY PHYSICIAN Emergency Medicine; FAMILY PHYSICIAN Nurse Practitioner Adult Health; OTHER PHYSICIAN Internal Medicine Interventional Cardiology
PROC: B2151ZZ Fluoroscopy of Left Heart using Low Osmolar Contrast (ICD-10-PCS; 2023-11-17)
PROC: 4A023N7 Measurement of Cardiac Sampling and Pressure, Left Heart, Percutaneous Approach (ICD-10-PCS; 2023-11-17)
PROC: B2111ZZ Fluoroscopy of Multiple Coronary Arteries using Low Osmolar Contrast (ICD-10-PCS; 2023-11-17)
PROC: B24BZZ4 Ultrasonography of Heart with Aorta, Transesophageal (ICD-10-PCS; 2023-11-18)
PROC: 5A1221Z Performance of Cardiac Output, Continuous (ICD-10-PCS; 2023-11-18)
PROC: 02110Z9 Bypass Coronary Artery, Two Arteries from Left Internal Mammary, Open Approach (ICD-10-PCS; 2023-11-18)
DX: I21.4 Non-ST elevation (NSTEMI) myocardial infarction (principal); D62 Acute posthemorrhagic anemia; I47.10 Supraventricular tachycardia, unspecified; J98.11 Atelectasis; I30.9 Acute pericarditis, unspecified; I25.10 Atherosclerotic heart disease of native coronary artery without angina pectoris; J30.2 Other seasonal allergic rhinitis; I10 Essential (primary) hypertension; E78.1 Pure hyperglyceridemia; E66.9 Obesity, unspecified; K80.20 Calculus of gallbladder without cholecystitis without obstruction; K57.30 Diverticulosis of large intestine without perforation or abscess without bleeding; E83.51 Hypocalcemia; E86.1 Hypovolemia; E87.70 Fluid overload, unspecified; F12.90 Cannabis use, unspecified, uncomplicated; F41.9 Anxiety disorder, unspecified; Z68.31 Body mass index [BMI] 31.0-31.9, adult; Z82.49 Family history of ischemic heart disease and other diseases of the circulatory system; Z87.891 Personal history of nicotine dependence
CPT/HCPCS: 71045; 71046; 71250; 80048; 80053; 80061; 81003; 81015; 82248; 82306; 82330; 82565; 82805; 82947; 82962; 83036; 83735; 84132; 84302; 84484; 84520; 85014; 85018; 85025; 85027; 85049; 85610; 85730; 86704; 86705; 86706; 86708; 86709; 86803; 86850; 86900; 86901; 86920; 87340; 93005; 93306; 93312; 93320; 93325; 93458; 93880; 94002; 96374; 99152; 99153; 99291; C1894; P9045; Q9967

== ENCOUNTER 2024-01-12 08:30 | Outpatient (RCR) | payer OTHER, SELFPAY | END 2024-01-12 23:59 | disposition home or self-care (01) | LOC: CRHB 08:30 | PROVIDERS: ATTENDING PHYSICIAN Internal Medicine Cardiovascular Disease; FAMILY PHYSICIAN Nurse Practitioner Adult Health | DX: I25.10 Atherosclerotic heart disease of native coronary artery without angina pectoris (principal); Z95.1 Presence of aortocoronary bypass graft | CPT/HCPCS: 93797; 93798; G0422; G0423 ==

== ENCOUNTER 2024-01-17 08:17 | Outpatient (RCR) | payer OTHER, SELFPAY | END 2024-01-17 23:59 | disposition home or self-care (01) | LOC: CRHB 08:17 | PROVIDERS: ATTENDING PHYSICIAN Internal Medicine Cardiovascular Disease; FAMILY PHYSICIAN Nurse Practitioner Adult Health | DX: I25.10 Atherosclerotic heart disease of native coronary artery without angina pectoris (principal); Z95.1 Presence of aortocoronary bypass graft | CPT/HCPCS: 93797; 93798 ==

== ENCOUNTER 2024-07-10 06:11 | Day surgery (SDC) | payer OTHER, SELFPAY ==
[2024-07-10] VITALS (8 sets, daily range): BP systolic 111–147; BP diastolic 59–76
[2024-07-10] MEDS: HEPARIN 5000 UNITS SC (06:42)
[2024-07-10] MEDS: TYLENOL 1000 MG PO (06:42)
[2024-07-10] MEDS: NORMOSOL-R/PLASMALYTE-A 1000 IV (06:43)
--- NOTE | 2024-07-10 08:54 | OR.RPT ---
Operative Report
Operative Report
Primary Surgeon: Xavi
Assisting: Khai LEVIN
Pre-op Diagnosis: Bilateral inguinal hernias
Post-op Diagnosis: Same
Procedure Performed: Robot assisted laparoscopic repair of bilateral inguinal hernias
Anesthesia Type: GETA
Specimen / Cultures: None
Estimated Blood Loss: 5cc
Complications: None immediate
Operative Findings: Bilateral indirect defects with moderate cord lipomas, right cord fatty; B/L MID 3D max
Date of surgery: 07/10/24
Indications:� This 62M developed a symptomatic left inguinal hernia. Robot assisted laparoscopic repair was planned.
Description of procedure:� The patient was taken to the operating room and positioned into supine position. The patient�s abdomen was prepped and draped in standard sterile fashion. A time-out was completed verifying correct patient, procedure,
site, positioning, and implants and special equipment prior to beginning this procedure.
The groin hernias were manually reduced. A stab incision was made in the left upper quadrant, a Veress needle was inserted and proper position was confirmed by aspiration and saline drop test. Following this, pneumoperitoneum was created with
insufflation of carbon dioxide to 12 mmHg. Then a 8mm robotic trocar was inserted above and to the left of the umbilicus. A laparoscope was inserted and the area of initial trocar entry and Veress needle placement were both inspected and no injuries
were found. Two 8mm trocars were then placed lateral to the rectus sheath under direct visualization.
Both inguinal regions were inspected and the median umbilical ligament, medial umbilical ligament, and lateral umbilical fold were identified. Attention was turned to the right groin. The peritoneum was incised transversely above the defect and a
flap was developed in the caudad direction. Chuck�s ligament was identified ultimately dissected to its junction with the iliac vein and the space of Retzius was developed bluntly.� The dissection was continued inferiorly to the iliopubic tract,
with care taken to avoid injury to the femoral branch of the genitofemoral nerve and the lateral femoral cutaneous nerve. The cord structures were parietalized.
The direct space was inspected and no hernia defect was identified .The femoral space was inspected no defect was identified.� The indirect space was inspected and a hernia was identified and reduced by gentle traction along with a moderate cord
lipoma.
Attention was turned to the left groin and the above process was repeated with similar findings.
Extra large left and right MID 3D max mesh was passed through a trocar. The mesh was placed into the preperitoneal space and moved into position to lay flat and completely cover the direct, indirect, and femoral spaces with overlap at the midline.
The mesh was secured into place using 2-0 vicryl suture to Chuck�s ligament medially and laterally. Care was taken to avoid the inferolateral triangles containing the iliac vessels and genital nerves. The peritoneal flap was closed over the mesh
and secured with 2-0 monocryl stratafix suture in similar positions of safety. A 14g angiocath was used to decompress the preperitoneal space revealing good seal and all mesh in good position without folding or curling.
After ensuring adequate hemostasis, the trocars were removed and the pneumoperitoneum allowed to escape. The trocar incisions were closed at the skin level using 4-0 monocryl and topical skin adhesive. All counts were correct and the patient
tolerated the procedure well and was taken to the postanesthesia care unit in stable condition.
The assistance of Khai LEVIN was required due to the complexity of the procedure. During the procedure she assisted with retraction, resection, and closure of the wound.
[2024-07-10] MEDS: SUBLIMAZE 25 MCG IV (09:22)
[2024-07-10] MEDS: ROXICODONE 5 MG PO (10:59)
== END 2024-07-10 11:02 | disposition home or self-care (01) ==
LOC: SDS 06:11
PROVIDERS: ATTENDING PHYSICIAN Surgery
DX: K40.20 Bilateral inguinal hernia, without obstruction or gangrene, not specified as recurrent (principal)
CPT/HCPCS: 49650; C1781

== ENCOUNTER → 2024-08-15 15:46 | Outpatient (REF) | payer OTHER, SELFPAY | LOC: RAD 15:46 | PROVIDERS: ATTENDING PHYSICIAN Nurse Practitioner Adult Health | DX: R63.4 Abnormal weight loss (principal); R53.83 Other fatigue; R61 Generalized hyperhidrosis; Z87.891 Personal history of nicotine dependence | CPT/HCPCS: 71260; 74177; Q9967 ==

== ENCOUNTER → 2025-01-09 16:07 | Outpatient (REF) | payer OTHER, SELFPAY | LOC: HWRAD 16:07 | PROVIDERS: ATTENDING PHYSICIAN Nurse Practitioner Adult Health | DX: L03.011 Cellulitis of right finger (principal); R60.0 Localized edema | CPT/HCPCS: 73130 ==